=== PATIENT | female | born 1965 | race Caucasian/White ===

== ENCOUNTER 2016-12-26 16:39 | Emergency (ER) | payer BC ==
[~2016-12-26] VITALS: Ht 154.9 cm; Wt 65.9 kg
[2016-12-26] MEDS ORDERED: RESTORIL30 MG PO (17:27)
[2016-12-26] MEDS ORDERED: LEXAPRO20 MG PO (17:27)
[2016-12-26] MEDS ORDERED: MYSOLINE 5050 MG/TAB PO (17:27)
[2016-12-26] MEDS ORDERED: ATARAX 25MG25 MG/TAB PO (17:28)
[2016-12-26] MEDS ORDERED: PRIL40 PO (17:29)
[2016-12-26] MEDS ORDERED: SEROQUEL XR50 MG PO (17:29)
[2016-12-26] MEDS ORDERED: MESTINON 6060 MG/TAB PO (17:30)
[2016-12-26 18:20] LABS: BASO # 0.1 (0.0-0.2); BASO % 0.8 % (0.0-2.0); EOS # 0.2 (0.0-0.7); EOS % 2.4 % (0-4.0); GRAN # 3.4 (1.4-6.5); GRAN % 51.7 % (42.2-75.2); HEMOGLOBIN 14.1 g/dl (12.5-16.0); LYMPH # 2.4 (1.2-3.4); LYMPH % 36.6 % (20.0-51.0); MEAN CELL VOLUME 96 fl (80.0-100.0); MEAN CORPUSCULAR HEMOGLOBIN 31 pg (27.0-31.0); MEAN CORPUSCULAR HGB CONC 33 g/dl (33.0-37.0); MEAN PLATELET VOLUME 10.2 fl (7.4-10.4); MONO # 0.6 (0.1-0.6); MONO % 8.3 % (1.7-9.3); PLATELET COUNT 258 K/mm3 (130-400); RED BLOOD COUNT 4.49 M/mm3 (4.10-5.30); WHITE BLOOD COUNT 6.6 K/mm3 (4.8-10.8)
[2016-12-26 18:30] LABS: ADJUSTED CALCIUM 9.6 mg/dL (8.4-10.2); ALANINE AMINOTRANSFERASE 40 U/L (9-52); ALBUMIN 4.7 gm/dL (3.5-5.0); ALKALINE PHOSPHATASE 71 U/L (50-136); ANION GAP 10 mmol/L (7-16); BILIRUBIN,TOTAL 0.5 mg/dL (0.0-1.0); BLOOD UREA NITROGEN 10 mg/dL (7-17); CALCIUM 10.2 mg/dL (8.4-10.2); CARBON DIOXIDE 28 mmol/L (22-30); CHLORIDE 104 mmol/L (98-107); CREATININE, serum 0.85 mg/dL (0.52-1.25); GLUCOSE 118 mg/dL (74-106); SODIUM 142 mmol/L (137-145); TOTAL PROTEIN 7.5 gm/dL (6.4-8.2)
[2016-12-26 18:44] LABS: ALCOHOL(ethanol),MEDICAL < 10 mg/dL; SALICYLATE < 1.0 mg/dL
[2016-12-26 18:45] LABS: ACETAMINOPHEN 57 ug/mL (10-30)
[2016-12-26 18:48] LABS: AMPHETAMINE URINE NEGATIVE; BARBITURATES URINE POSITIVE; BENZODIAZEPINES URINE POSITIVE; BUPRENORPHINE URINE NEGATIVE; METHADONE URINE NEGATIVE; OPIATES URINE POSITIVE; OXYCODONE URINE NEGATIVE; PHENCYCLIDINE URINE NEGATIVE; PROPOXYPHENE URINE NEGATIVE; THC CANNABINOIDS URINE NEGATIVE; TRICYCLIC ANTIDEPRESS URINE POSITIVE
[2016-12-27 03:40] VITALS: BP 132/68; PULSE 69; TEMP 97.7
== END 2016-12-27 03:53 ==
LOC: COL.ER 16:39
PROVIDERS: Physician Assistant
DX: F32.9 Major depressive disorder, single episode, unspecified (principal); R45.851 Suicidal ideations; F41.9 Anxiety disorder, unspecified; F42.9 Obsessive-compulsive disorder, unspecified

== ENCOUNTER 2017-12-01 18:26 | Emergency (ER) | payer BC ==
[~2017-12-01] VITALS: Ht 154.9 cm; Wt 75.0 kg
[~2017-12-01 18:26] MED LIST: ATARAX 25MG25 MG/TAB PO; LEXAPRO20 MG PO; MESTINON 6060 MG/TAB PO; MYSOLINE 5050 MG/TAB PO; PRIL40 PO; RESTORIL30 MG PO; SEROQUEL XR50 MG PO
[2017-12-01 18:33] VITALS: TEMP 97.6
[2017-12-01] MEDS ORDERED: AMBIEN 10MG10 MG PO (18:49)
[2017-12-01 19:08] LABS: BASO # 0.1 (0.0-0.2); BASO % 0.5 % (0.0-2.0); EOS % 0.1 % (0-4.0); GRAN # 8.4 (1.4-6.5); GRAN % 88.3 % (42.2-75.2); HEMATOCRIT 39.6 % (37.0-47.0); HEMOGLOBIN 13.3 g/dl (12.5-16.0); LYMPH # 0.8 (1.2-3.4); LYMPH % 8.7 % (20.0-51.0); MEAN CELL VOLUME 93 fl (80.0-100.0); MEAN CORPUSCULAR HEMOGLOBIN 31 pg (27.0-31.0); MEAN CORPUSCULAR HGB CONC 34 g/dl (33.0-37.0); MEAN PLATELET VOLUME 10.2 fl (7.4-10.4); MONO # 0.2 (0.1-0.6); MONO % 2.1 % (1.7-9.3); PLATELET COUNT 274 K/mm3 (130-400); RED BLOOD COUNT 4.27 M/mm3 (4.10-5.30); REDCELL DISTRIBUTION WIDTH-CV 12.4 % (11.5-14.5)
[2017-12-01 19:19] LABS: ALBUMIN 4.5 gm/dL (3.5-5.0); BILIRUBIN,TOTAL 0.3 mg/dL (0.0-1.0); CALCIUM 9.6 mg/dL (8.4-10.2); CREATININE, serum 0.75 mg/dL (0.52-1.25); POTASSIUM 3.8 mmol/L (3.4-5.0); TOTAL PROTEIN 7.7 gm/dL (6.4-8.2)
[2017-12-01 20:42] VITALS: BP 141/79; PULSE 102
== END 2017-12-01 20:42 | disposition home or self-care (01) ==
LOC: COL.ER 18:26
PROVIDERS: Physician Assistant
DX: R42 Dizziness and giddiness (principal); R06.7 Sneezing; R06.00 Dyspnea, unspecified; Z90.49 Acquired absence of other specified parts of digestive tract; Z90.710 Acquired absence of both cervix and uterus; Z90.89 Acquired absence of other organs; Z86.73 Personal history of transient ischemic attack (TIA), and cerebral infarction without residual deficits
CPT/HCPCS: J0171; J7512; Q9967

== ENCOUNTER 2018-04-10 14:29 | Emergency (ER) | payer BC ==
[~2018-04-10] VITALS: Ht 154.9 cm; Wt 77.3 kg
[~2018-04-10 14:29] MED LIST changes: +AMBIEN 10MG10 MG PO
[2018-04-10 14:34] VITALS: TEMP 98.6
[2018-04-10 15:07] LABS: BASO # 0.1 (0.0-0.2); BASO % 0.9 % (0.0-2.0); EOS # 0.1 (0.0-0.7); EOS % 0.9 % (0-4.0); GRAN % 67.4 % (42.2-75.2); HEMATOCRIT 41.2 % (37.0-47.0); HEMOGLOBIN 13.9 g/dl (12.5-16.0); LYMPH # 1.7 (1.2-3.4); LYMPH % 22.7 % (20.0-51.0); MEAN CELL VOLUME 98 fl (80.0-100.0); MEAN CORPUSCULAR HEMOGLOBIN 33 pg (27.0-31.0); MEAN CORPUSCULAR HGB CONC 34 g/dl (33.0-37.0); MEAN PLATELET VOLUME 9.9 fl (7.4-10.4); MONO # 0.6 (0.1-0.6); MONO % 7.8 % (1.7-9.3); PLATELET COUNT 295 K/mm3 (130-400); RED BLOOD COUNT 4.22 M/mm3 (4.10-5.30); REDCELL DISTRIBUTION WIDTH-CV 11.9 % (11.5-14.5)
[2018-04-10 15:51] LABS: ALBUMIN 4.5 gm/dL (3.5-5.0); BILIRUBIN,TOTAL 0.4 mg/dL (0.0-1.0); CALCIUM 9.9 mg/dL (8.4-10.2); CREATININE, serum 0.67 mg/dL (0.52-1.25); POTASSIUM 4.1 mmol/L (3.4-5.0); TOTAL PROTEIN 7.4 gm/dL (6.4-8.2)
[2018-04-10] MEDS ORDERED: ZOFRAN 4MG T4 MG/TAB PO (16:34)
[2018-04-10 17:14] VITALS: BP 116/90; PULSE 76
== END 2018-04-10 17:15 | disposition home or self-care (01) ==
LOC: COL.ER 14:29
PROVIDERS: Emergency Medicine
DX: B34.9 Viral infection, unspecified (principal); J06.9 Acute upper respiratory infection, unspecified; Z90.710 Acquired absence of both cervix and uterus; Z90.49 Acquired absence of other specified parts of digestive tract; Z90.89 Acquired absence of other organs; Z90.722 Acquired absence of ovaries, bilateral
CPT/HCPCS: J2405; J7030

== ENCOUNTER 2019-09-15 06:39 | Day surgery (SDC) | payer BC ==
[~2019-09-15] VITALS: Ht 154.9 cm; Wt 69.9 kg
[~2019-09-15 06:39] MED LIST changes: +ZOFRAN 4MG T4 MG/TAB PO
[2019-09-15 07:29] VITALS: BP 140/68; PULSE 63; TEMP 9.6
[2019-09-15] MEDS ORDERED: CYMBALTA 60MG60 MG PO (07:40)
[2019-09-15] MEDS ORDERED: NEURONTIN300 MG/CAP PO (07:41)
[2019-09-15] MEDS ORDERED: TOPAMAX50 MG PO (07:42)
[2019-09-15] MEDS ORDERED: DESYREL 100MG100 MG PO (07:52)
[2019-09-15] MEDS ORDERED: PRIL40 PO (07:52)
[2019-09-15] MEDS ORDERED: GEODON 40MG40 MG PO (07:53)
--- NOTE | 2019-09-15 09:26 | NUR ---
Patient brought back to [facility] via cart. GABRIELA and Monica RN at bedside for report. Patient is drowsy but denies pain or nausea. Placed on monitors, stable. Small sip of water taken, tolerated well. IV infusing without difficulty. Patient states she would just like to sleep at this time. Will continue to monitor.
[2019-09-15 09:30] VITALS: BP 115/61; PULSE 51
--- NOTE | 2019-09-15 09:30 | NUR ---
Patient denies pain or nausea. Vital signs stable. Resting comfortably in bed. Boot to left foot noted, clean dry intact. Will continue to monitor.
[2019-09-15 09:34] VITALS: BP 114/66; PULSE 57; TEMP 97.1
[2019-09-15 09:45] VITALS: BP 130/63; PULSE 58
--- NOTE | 2019-09-15 09:45 | NUR ---
Patient states she feels ready to eat. Requesting muffin with butter. Dr. Gutierrez states he has talked with patients daughter on phone. Daughter will pick patient up when she is ready for discharge. Tolerating food and drink without difficulty. Denies pain or nausea.
[2019-09-15 10:00] VITALS: BP 127/78; PULSE 50
--- NOTE | 2019-09-15 10:00 | NUR ---
Patient states she feels ready to go home. IV removed, intact. Tolerated food and drink without difficulty. Patient to get dressed at this time. Patients left foot, clean dry intact. Good blood flow to toes noted.
--- NOTE | 2019-09-15 10:13 | NUR ---
Patient discharge instructions and education packet reviewed. Called daughter to pick up attendant. All questions answered.
--- NOTE | 2019-09-15 10:25 | NUR ---
Patient brought down to lobby via wheel chair. All belongings in hand. Daughter met patient at front door. To be driven home by daughter.
== END 2019-09-15 10:25 | disposition home or self-care (01) ==
LOC: SDCO 06:39
DX: M21.612 Bunion of left foot (principal); F98.8 Other specified behavioral and emotional disorders with onset usually occurring in childhood and adolescence; K21.9 Gastro-esophageal reflux disease without esophagitis; M54.41 Lumbago with sciatica, right side; E66.9 Obesity, unspecified; I45.10 Unspecified right bundle-branch block; F41.9 Anxiety disorder, unspecified; F32.9 Major depressive disorder, single episode, unspecified; G25.0 Essential tremor; Z88.8 Allergy status to other drugs, medicaments and biological substances; Z90.49 Acquired absence of other specified parts of digestive tract; Z88.2 Allergy status to sulfonamides; Z88.0 Allergy status to penicillin; Z79.51 Long term (current) use of inhaled steroids
CPT/HCPCS: J2704; J3010; J7120

== ENCOUNTER → 2020-10-24 | Outpatient (CLI) | payer BC ==
[~2020-10-24] MED LIST changes: +CLARITIN 1010 MG/TAB PO; +CYMBALTA 60MG60 MG PO; +DESYREL 100MG100 MG PO; +GEODON 40MG40 MG PO; +LUNESTA2 MG PO; +NEURONTIN300 MG/CAP PO; +NEURONTIN600 MG/TAB PO; +REGLAN 5MG T5 MG/TAB PO; +TOPAMAX50 MG PO
== END ==
LOC: COL.RAD 07:46
DX: K21.9 Gastro-esophageal reflux disease without esophagitis (principal); K22.2 Esophageal obstruction; K20.0 Eosinophilic esophagitis
CPT/HCPCS: A9541

== ENCOUNTER 2020-12-20 09:59 | Day surgery (SDC) | payer BC ==
[~2020-12-20 09:59] MED LIST changes: -CLARITIN 1010 MG/TAB PO; -LUNESTA2 MG PO; -NEURONTIN600 MG/TAB PO; -REGLAN 5MG T5 MG/TAB PO
--- NOTE | 2020-12-20 10:09 | NUR ---
Patient admitted to room 2 ambulatory and is alert and oriented x3. Voices understanding of surgery and consent signed. Patient admits tp eating and drinking this AM at 0600. Anesthesia associates notified and patient will not be able to have surgery until [address] Guiterrez notified and surgery will need to be rescheduled to another day. Patient informed and called daugther for ride home and will wait in the lobby for ride.
[2020-12-20] MEDS ORDERED: DESYREL 100MG100 MG PO (14:33)
[2020-12-20] MEDS ORDERED: REGLAN 5MG T5 MG/TAB PO (14:33)
[2020-12-20] MEDS ORDERED: CLARITIN 1010 MG/TAB PO (14:34)
[2020-12-20] MEDS ORDERED: CYMBALTA 60MG60 MG PO (14:34)
[2020-12-20] MEDS ORDERED: ATARAX 25MG25 MG/TAB PO (14:35)
[2020-12-20] MEDS ORDERED: TOPAMAX50 MG PO (14:36)
[2020-12-20] MEDS ORDERED: NEURONTIN300 MG/CAP PO (14:36)
[2020-12-20] MEDS ORDERED: LUNESTA2 MG PO (14:36)
[2020-12-20] MEDS ORDERED: PRIL40 PO (14:37)
[2020-12-20] MEDS ORDERED: NEURONTIN600 MG/TAB PO (14:37)
== END 2020-12-20 10:06 | disposition home or self-care (01) ==
LOC: SDCO 09:59
DX: M20.42 Other hammer toe(s) (acquired), left foot (principal); M77.52 Other enthesopathy of left foot and ankle; Z53.8 Procedure and treatment not carried out for other reasons; K21.9 Gastro-esophageal reflux disease without esophagitis; F41.9 Anxiety disorder, unspecified; E66.9 Obesity, unspecified; G47.00 Insomnia, unspecified; J30.89 Other allergic rhinitis; Z79.899 Other long term (current) drug therapy; Z68.29 Body mass index [BMI] 29.0-29.9, adult

== ENCOUNTER → 2021-05-10 | Outpatient (CLI) | payer BC ==
[~2021-05-10] MED LIST changes: +CLARITIN 1010 MG/TAB PO; +LUNESTA2 MG PO; +NEURONTIN600 MG/TAB PO; +REGLAN 5MG T5 MG/TAB PO
== END ==
LOC: MC.RAD 12:54
DX: Z12.31 Encounter for screening mammogram for malignant neoplasm of breast (principal)